=== PATIENT | female | born 1955 | race Caucasian/White ===

== ENCOUNTER 2019-02-28 09:42 | Day surgery (SDC) | payer OTHER ==
[~2019-02-28] VITALS: Ht 167.6 cm; Wt 69.2 kg
[~2019-02-28 09:42] MED LIST: DULO30 PO; FLUT1DIS2 INH
[2019-02-28] MEDS ORDERED: GABA300 (10:48)
--- NOTE | 2019-02-28 12:27 | NUR ---
02/28/19 1227 Ana Campbell WITH STERILE WATER INJECTED THROUGH BIOPSY PORT TO IRRIGATE BILE------ PATIENT VOMITED BILE DURING PROCEDURE, SHE WAS SUCTIONED, GIVEN ZOFRAN PER MD ORDER, AND KEEP AIRWAY OPEN WITH NO DROP IN HER O2 SATS PATIENT REMAINED STABLE
== END 2019-02-28 12:56 | disposition home or self-care (01) ==
LOC: ORSCSDS 09:42
PROVIDERS: Student in an Organized Health Care Education/Training Program
PROC: 0DBE8ZX Excision of Large Intestine, Via Natural or Artificial Opening Endoscopic, Diagnostic (ICD-10-PCS; principal; 2019-02-28 11:15)
DX: R19.7 Diarrhea, unspecified (principal); K64.8 Other hemorrhoids; K62.89 Other specified diseases of anus and rectum; K57.30 Diverticulosis of large intestine without perforation or abscess without bleeding; J45.909 Unspecified asthma, uncomplicated; F32.9 Major depressive disorder, single episode, unspecified; F17.210 Nicotine dependence, cigarettes, uncomplicated; Z79.899 Other long term (current) drug therapy
CPT/HCPCS: 88305; J2405; J2704; J7120

== ENCOUNTER → 2020-12-10 | Outpatient (CLI) | payer OTHER ==
[~2020-12-10] MED LIST changes: +GABA300
== END | disposition home or self-care (01) ==
LOC: PLD 13:52 → LAB SHORT 13:52
DX: D23.71 Other benign neoplasm of skin of right lower limb, including hip (principal)
CPT/HCPCS: 88305

== ENCOUNTER 2022-04-15 09:18 | Day surgery (SDC) | payer MEDICARE, OTHER ==
[~2022-04-15 09:18] MED LIST changes: +ESCI10 PO; -GABA300; +GABA300 PO; +LOSA25 PO
== END 2022-04-15 22:50 | disposition home or self-care (01) ==
LOC: MOI US 09:18 → NM 04-20 09:00
DX: C50.912 Malignant neoplasm of unspecified site of left female breast (principal)
CPT/HCPCS: 19285; 77065; A4648; G0279

== ENCOUNTER 2022-05-18 08:06 | Day surgery (SDC) | payer MEDICARE, OTHER ==
[~2022-05-18] VITALS: Ht 167.6 cm; Wt 68.0 kg
--- NOTE | 2022-05-18 10:00 | NUR ---
PT TOLERATED PROCEDURE WITHOUT ISSUE, DENIES PAIN; CHEST DRESSING NO SWELLING/HEMATOMA, TELFA AND TEGADERM DRSG INTACT. [employer] REP REVIEWING LINQ INFORMATION.
--- NOTE | 2022-05-18 10:20 | NUR ---
PT DRESSED SELF WITHOUT ISSUE. PT AND SPOUSE RECEIVED DISCHARGE INSTRUCTIONS, MED LIST AND AFTER CARE INSTRUCTIONS; VERBALIZED GOOD UNDERTANDING. PT LEFT FACILITY VIA AMB, CONDITION STABLE.
== END 2022-05-18 23:26 | disposition home or self-care (01) ==
LOC: MHTC 08:06
DX: R55 Syncope and collapse (principal); I47.1 Supraventricular tachycardia
CPT/HCPCS: 33285; C1764

== ENCOUNTER → 2022-07-06 | Outpatient (CLI) | payer MEDICARE, OTHER | END | disposition home or self-care (01) | LOC: LAB 13:55 → LAB SHORT 13:55 | DX: K52.9 Noninfective gastroenteritis and colitis, unspecified (principal) | CPT/HCPCS: 87177; 87209 ==

== ENCOUNTER 2022-08-23 07:50 | Day surgery (SDC) | payer MEDICARE, OTHER ==
[~2022-08-23] VITALS: Ht 167.6 cm; Wt 60.7 kg
== END 2022-08-23 10:37 | disposition home or self-care (01) ==
LOC: ORSCSDS 07:50
PROVIDERS: Student in an Organized Health Care Education/Training Program
PROC: 0DBN8ZX Excision of Sigmoid Colon, Via Natural or Artificial Opening Endoscopic, Diagnostic (ICD-10-PCS; principal; 2022-08-23 09:15)
PROC: 0DBM8ZX Excision of Descending Colon, Via Natural or Artificial Opening Endoscopic, Diagnostic (ICD-10-PCS; principal; 2022-08-23 09:15)
PROC: 0DBE8ZX Excision of Large Intestine, Via Natural or Artificial Opening Endoscopic, Diagnostic (ICD-10-PCS; principal; 2022-08-23 09:15)
DX: K58.1 Irritable bowel syndrome with constipation (principal); K52.831 Collagenous colitis; K57.30 Diverticulosis of large intestine without perforation or abscess without bleeding; K64.8 Other hemorrhoids; K62.89 Other specified diseases of anus and rectum; I10 Essential (primary) hypertension; Z85.3 Personal history of malignant neoplasm of breast; Z79.899 Other long term (current) drug therapy
CPT/HCPCS: 88305; J2405; J2704; J7120

== ENCOUNTER → 2022-12-12 | Outpatient (CLI) | payer MEDICARE, OTHER | END | disposition home or self-care (01) | LOC: LAB SHORT 13:30 → PLD 13:30 | DX: L82.1 Other seborrheic keratosis (principal) | CPT/HCPCS: 88305 ==

== ENCOUNTER → 2023-06-16 | Outpatient (CLI) | payer MEDICARE, OTHER ==
[2023-06-16 17:43] LABS: Adenovirus F 40/41 Not Detected (NOT DETECT); Astrovirus Not Detected (NOT DETECT); Campylobacter Sp Not Detected (NOT DETECT); Cryptosporidium Not Detected (NOT DETECT); Cyclospora Cayetanensis Not Detected (NOT DETECT); E. Coli O157 Not Detected (NOT DETECT); Entamoeba Histolytica Not Detected (NOT DETECT); Enteroaggregative E. coli-EAEC Not Detected (NOT DETECT); Enteropathogenic E. coli-EPEC Not Detected (NOT DETECT); Enterotoxigenic E. coli-ETEC Not Detected (NOT DETECT); Giardia Lamblia Not Detected (NOT DETECT); Norovirus GI/GII Not Detected (NOT DETECT); Plesiomonas Shigelloides Not Detected (NOT DETECT); Rotavirus A Not Detected (NOT DETECT); Salmonella Sp Not Detected (NOT DETECT); Sapovirus Not Detected (NOT DETECT); Shiga Toxin-prod E. coli-STEC Not Detected (NOT DETECT); Shigella/Enteroin E. coli-EIEC Not Detected (NOT DETECT); Vibrio Cholerae Not Detected (NOT DETECT); Vibrio Sp Not Detected (NOT DETECT); Yersinia Enterocolitica Not Detected (NOT DETECT)
== END ==
LOC: LAB 15:16 → LAB SHORT 15:16
PROVIDERS: Internal Medicine
DX: R19.7 Diarrhea, unspecified (principal)
CPT/HCPCS: 87507